=== PATIENT | female | born 1965 | race American Indian/Alaskan Native ===

== ENCOUNTER 2017-12-20 15:53 | Inpatient (IN) | payer BC ==
--- NOTE | 2017-12-20 16:29 | ED PDOC ---
Arrival/HPI - General Chief Complaint: Abdominal Pain Time Seen by Provider: 12/20/17 15:59 Historian: Patient - History of Present Illness Narrative History of Present Illness (Text): 12/20/17 16:26 52 year old female, whose history includes Graves' disease, presents to the Emergency department complaining of abdominal pain described as cramping and vomiting since 11:00 this morning. Patient reports vomit is now just bile, not food. Patient states she was entirely asymptomatic last night. Patient denies any fever, chills, chest pain, shortness of breath, diarrhea, urinary symptoms, back pain, neck pain, headache, dizziness, or any other complaints. Time/Duration: 4-6 hours Symptom Onset: Sudden Symptom Course: Unchanged Quality: Cramping Activities at Onset: Rest Context: Home Past Medical History - Provider Review Nursing Documentation Reviewed: Yes - Reproductive Menopause: Yes - Cardiac Hx Cardiac Disorders: No - Pulmonary Hx Respiratory Disorders: No - Neurological Hx Neurological Disorder: No - HEENT Hx HEENT Disorder: No - Renal Hx Renal Disorder: No - Endocrine/Metabolic Hx Endocrine Disorders: Yes Hx Hypothyroidism: Yes - Hematological/Oncological Hx Blood Disorders: No - Integumentary Hx Dermatological Disorder: No - Musculoskeletal/Rheumatological Hx Musculoskeletal Disorders: Yes Hx Back Pain: Yes Other/Comment: REYNAUDS - Gastrointestinal Hx Gastrointestinal Disorders: No - Genitourinary/Gynecological Hx Genitourinary Disorders: No - Psychiatric Hx Psychophysiologic Disorder: No Hx Substance Use: No - Surgical History Other/Comment: MYOMECTOMY, POLYP REMOVED FROM THROAT - Anesthesia Hx Anesthesia Reactions: No Hx Malignant Hyperthermia: No - Suicidal Assessment Feels Threatened In Home Enviroment: No Family/Social History - Physician Review Nursing Documentation Reviewed: Yes Family/Social History: No Known Family HX Smoking Status: Current Some Days Smoker Hx Alcohol Use: Yes (SOCIAL) Hx Substance Use: No Allergies/Home Meds Allergies/Adverse Reactions: Allergies levofloxacin [From Levaquin] Allergy (Mild, Verified 12/20/17 16:09) RASH Home Medications: Home Meds Medication Instructions Recorded Confirmed Naproxen [Naprosyn Tab] 500 mg PO DAILY 11/28/15 12/20/17 Oxycodone HCl/Acetaminophen 1 tab PO Q6H PRN 11/28/15 12/20/17 [Percocet 5-325 mg Tablet] methIMAzole [Tapazole] 5 mg PO DAILY 11/28/15 12/20/17 Review of Systems - Physician Review All systems were reviewed & negative as marked: Yes - Review of Systems Constitutional: absent: Fevers, Night Sweats Respiratory: absent: SOB Cardiovascular: absent: Chest Pain Gastrointestinal: Abdominal Pain, Nausea, Vomiting. absent: Diarrhea Genitourinary Female: absent: Dysuria Musculoskeletal: absent: Back Pain, Neck Pain Neurological: absent: Headache, Dizziness Physical Exam Vital Signs Reviewed: Yes Vital Signs Temp Pulse Resp BP Pulse Ox 12/20/17 20:13 74 17 132/78 100 12/20/17 18:29 72 17 135/80 99 12/20/17 16:14 99.2 F 76 18 136/83 100 Temperature: Afebrile Blood Pressure: Normal Pulse: Regular Respiratory Rate: Normal Appearance: Positive for: Well-Appearing, Non-Toxic, Comfortable Pain Distress: None Mental Status: Positive for: Alert and Oriented X 3 - Systems Exam Head: Present: Atraumatic, Normocephalic Pupils: Present: PERRL Extroacular Muscles: Present: EOMI Conjunctiva: Present: Normal Mouth: Present: Moist Mucous Membranes Neck: Present: Normal Range of Motion Respiratory/Chest: Present: Clear to Auscultation, Good Air Exchange. No: Respiratory Distress, Accessory Muscle Use Cardiovascular: Present: Regular Rate and Rhythm, Normal S1, S2. No: Murmurs Abdomen: Present: Tenderness (Left upper quadrant tenderness. Positive Newton's sign in the right upper quadrant.), Rebound, Guarding Back: Present: Normal Inspection Upper Extremity: Present: Normal Inspection. No: Cyanosis, Edema Lower Extremity: Present: Normal Inspection. No: Edema Neurological: Present: GCS=15, CN II-XII Intact, Speech Normal Skin: Present: Warm, Dry, Normal Color. No: Rashes Psychiatric: Present: Alert, Oriented x 3, Normal Insight, Normal Concentration Medical Decision Making ED Course and Treatment: 12/20/17 16:31 Impression: 52 year old female presents to the Emergency department complaining of abdominal pain and vomiting since this morning. Differential Diagnosis included but are not limited to: cholecystitis vs. cholelithiasis Plan: -- CT scan of the abdomen and pelvis -- Chest xray -- EKG -- Urine culture -- Urinalysis -- VBG -- Labs -- Benadryl, Toradol, Morphine, Zofran, and Sodium Chloride IV fluids -- Reassess and disposition Progress Notes: 12/20/17 19:28 Patient's chemistry is normal, but the urine has 40+ ketones; this means the patient is likely dehydrated. Will give the patient 3 liters of fluid while she is waiting for CT scan. - Lab Interpretations Lab Results: 12/20/17 19:00 12/20/17 19:00 Lab Results 12/20/17 21:21: pO2 35, VBG pH 7.29 L, VBG pCO2 48.0, VBG HCO3 23.1, VBG Total CO2 24.6, VBG O2 Sat (Calc) 75.3 H, VBG Base Excess -3.8 L, VBG Potassium 4.0, Glucose 80, Lactate 1.8, FiO2 21.0, Sodium 138.0, Chloride 107.0, Venous Blood Potassium 4.0 12/20/17 21:20: Blood Type Confirm B POSITIVE 12/20/17 21:10: PT 11.8, INR 1.03 12/20/17 19:00: Blood Type B POSITIVE, Antibody Screen Negative, BBK History Checked No verified bt 12/20/17 19:00: Sodium 142, Potassium 4.6, Chloride 109 H, Carbon Dioxide 21, Anion Gap 17, BUN 14, Creatinine 0.9, Est GFR ( Amer) > 60, Est GFR (Non- Af Amer) > 60, Random Glucose 96, Calcium 9.4, Total Bilirubin 0.5, AST 15, ALT 16, Alkaline Phosphatase 69, Total Protein 7.1, Albumin 4.1, Globulin 3.0, Albumin/Globulin Ratio 1.4, Lipase 87 12/20/17 19:00: WBC 9.8, RBC 4.41, Hgb 14.6, Hct 43.0, MCV 97.5, MCH 33.1, MCHC 34.0, RDW 13.0, Plt Count 200, MPV 10.5, Gran % 82.0 H, Lymph % (Auto) 14.2 L, Piatt % (Auto) 3.8, Eos % (Auto) 0.0 L, Baso % (Auto) 0.0, Gran # 8.06 H, Lymph # (Auto) 1.4, Piatt # (Auto) 0.4, Eos # (Auto) 0.0, Baso # (Auto) 0.00 12/20/17 17:20: Urine Color Yellow, Urine Appearance Clear, Urine pH 5.5, Ur Specific [place] >= 1.030, Urine Protein Negative, Urine Glucose (UA) Negative, Urine Ketones 40 H, Urine Blood Negative, Urine Nitrate Negative, Urine Bilirubin Negative, Urine Urobilinogen 0.2, Ur Leukocyte Esterase Negative - RAD Interpretation Narrative RAD Interpretations (Text): 12/20/2017 17:39:35 Procedure: Chest xray FINDINGS: LUNGS: No active pulmonary disease. PLEURA: No significant pleural effusion identified, no pneumothorax apparent. CARDIOVASCULAR: Normal. OSSEOUS STRUCTURES: No significant abnormalities. VISUALIZED UPPER ABDOMEN: Normal. OTHER FINDINGS: None. IMPRESSION: No active disease. 12/20/2017 21:41 Procedure: CT Abdomen and Pelvis With Intravenous Contrast FINDINGS: Limitations: Motion artifact - mild. Lower thorax: Several ill-defined pulmonary nodules, up to 0.7 cm. ABDOMEN: Liver: < 0.5 cm lesion. Gallbladder and bile ducts: No calcified stones. No ductal dilation. Pancreas: No ductal dilation. No mass. Spleen: No splenomegaly. Adrenals: No mass. Kidneys and ureters: No mass. No hydronephrosis. Stomach and bowel: Several mild to moderately thickened loops of small bowel within lower abdomen/pelvis. [id number] stranding within adjacent mesentery. Apparent mild to moderate mural thickening of large bowel. Apparent minimal haziness within adjacent fat. Moderate focal dilatation of duodenum, likely ileus. Appendix: Normal caliber. No inflammation. PELVIS: Bladder: Unremarkable. Reproductive: Lobulated uterus with enhancing focal lesion. ABDOMEN and PELVIS: Intraperitoneal space: Small free fluid within pelvis. No free air. Bones/joints: No acute fracture. Soft tissues: Unremarkable. Vasculature: Retroaortic LEFT renal vein. No aneurysm. Lymph nodes: No pathologically enlarged lymph nodes. IMPRESSION: 1. Probable enterocolitis. Consider inflammatory or infectious etiologies. 2. Pulmonary nodules. Consider inflammatory, infectious, or neoplastic etiologies. 3. Probable fibroid uterus. 4. Liver lesion. For patients with low to average risk of malignancy, no further follow-up is necessary. For patients with high risk of malignancy (known malignancy that can metastasize or other risk factors), recommend follow-up abdominal CT or MR in 6 months. 5. Incidental/non-acute findings are described above. Radiology Orders: 12/20/17 16:27 ABD PELVIS PO & IV CONTRAST [CT] Stat CHEST PORTABLE [RAD] Stat - EKG Interpretation EKG Interpretation (Text): 12/20/17 16:37 EKG: Ordered, reviewed, and independently interpreted the EKG. Rate : 71 BPM Rhythm : NSR Interpretation : PVC's present. Normal axis, normal intervals. Interpreted by ED Physician: Yes Type: 12 lead EKG - Medication Orders Current Medication Orders: Discontinued Medications Diphenhydramine HCl (Benadryl) 25 mg IVP STAT STA Stop: 12/20/17 16:33 Last Admin: 12/20/17 17:05 Dose: 25 mg IVP Administration Document 12/20/17 17:05 SF (Rec: 12/20/17 17:05 SF [email or web address] Charges for Administration # of IVP Administrations 1 Sodium Chloride (Sodium Chloride 0.9%) 2,000 mls @ 999 mls/hr IV .Q2H1M STA Stop: 12/20/17 18:32 Last Admin: 12/20/17 17:06 Dose: 999 mls/hr eMAR Start Stop Document 12/20/17 17:06 SF (Rec: 12/20/17 17:06 SF [email or web address]) Intravenous Solution Start Date 12/20/17 Start Time 17:06 End Date 12/20/17 End time 19:06 Total Infusion Time 120 Sodium Chloride (Sodium Chloride 0.9%) 1,000 mls @ 999 mls/hr IV .Q1H1M STA Stop: 12/20/17 20:27 Last Admin: 12/20/17 19:30 Dose: 999 mls/hr eMAR Start Stop Document 12/20/17 19:30 AD (Rec: 12/20/17 21:46 AD [email or web address]) Intravenous Solution Start Date 12/20/17 Start Time 19:30 Ketorolac Tromethamine (Toradol) 30 mg IVP STAT STA Stop: 12/20/17 16:33 Last Admin: 12/20/17 17:05 Dose: 30 mg MAR Pain Assessment Document 12/20/17 17:05 SF (Rec: 12/20/17 17:05 SF [email or web address] Pain Reassessment Is this a pain reassessment? Yes Sleep Is patient sleeping during reassessment? No Presence of Pain Presence of Pain Yes Pain Scale Used Pain Scale Used Numeric IVP Administration Document 12/20/17 17:05 [facility] ([email or web address] Charges for Administration # of IVP Administrations 1 Morphine Sulfate (Morphine) 4 mg IVP STAT STA Stop: 12/20/17 16:33 Last Admin: 12/20/17 17:05 Dose: 4 mg MAR Pain Assessment Document 12/20/17 17:05 SF (Rec: 12/20/17 17:06 [email or web address] Pain Reassessment Is this a pain reassessment? Yes Sleep Is patient sleeping during reassessment? No Presence of Pain Presence of Pain Yes IVP Administration Document 12/20/17 17:05 SF (Rec: 12/20/17 17:06 [email or web address]) Charges for Administration # of IVP Administrations 1 Ondansetron HCl (Zofran Inj) 8 mg IVP STAT STA Stop: 12/20/17 16:33 Last Admin: 12/20/17 17:04 Dose: 8 mg IVP Administration Document 12/20/17 17:04 SF (Rec: 12/20/17 17:05 [email or web address] Charges for Administration # of IVP Administrations 1 - PA / [employer] SUPERVISOR / Resident Statement MD/DO has reviewed & agrees with the documentation as recorded. - Scribe Statement The provider has reviewed the documentation as recorded by the Mai Esteban Provider Scribe Attestation: All medical record entries made by the Scribshahrzad were at my direction and personally dictated by me. I have reviewed the chart and agree that the record accurately reflects my personal performance of the history, physical exam, medical decision making, and the department course for this patient. I have also personally directed, reviewed, and agree with the discharge instructions and disposition. Disposition/Present on Arrival - Present on Arrival Any Indicators Present on Arrival: No History of DVT/PE: No History of Uncontrolled Diabetes: No Urinary Catheter: No History of Decub. Ulcer: No History Surgical Site Infection Following: None - Disposition Have Diagnosis and Disposition been Completed?: Yes Diagnosis: Abdominal pain, Enterocolitis Disposition: HOSPITALIZED Disposition Time: 22:00 Patient Plan: Admission Condition: GOOD Forms: [employer] (Sami)
[2017-12-20] MEDS ORDERED: Morphine 4 mg/ml ISec IVP STA ×2 (16:32→22:03)
[2017-12-20] MEDS ORDERED: Sodium Chloride 0.9% 2,000 ML IV STA (16:32)
[2017-12-20] MEDS ORDERED: DiphenhydrAMINE 50 mg/ml Inj IVP STA ×2 (16:32→22:03)
[2017-12-20] MEDS ORDERED: Iohexol 240 (50 ml) ONE (16:41)
[2017-12-20 17:40] LABS: PH,URINE 5.5 (4.7-8.0); URINE BILIRUBIN NEGATIVE (NEGATIVE); URINE BLOOD NEGATIVE (NEGATIVE); URINE GLUCOSE (UA) NEGATIVE (NEGATIVE); URINE LEUKOCYTE ESTERASE NEGATIVE Leu/uL (NEGATIVE); URINE NITRATE NEGATIVE (NEGATIVE); URINE PROTEIN NEGATIVE mg/dL (<30 mg/dL); URINE UROBILINOGEN 0.2 E.U./dL (<1 E.U./dL)
[2017-12-20 17:41] LABS: URINE APPEARANCE CLEAR (CLEAR); URINE COLOR YELLOW (YELLOW)
--- NOTE | 2017-12-20 17:41 | RAD ---
HISTORY: LUQ EPIGASTRIC PAIN COMPARISON: No prior. FINDINGS: LUNGS: No active pulmonary disease. PLEURA: No significant pleural effusion identified, no pneumothorax apparent. CARDIOVASCULAR: Normal. OSSEOUS STRUCTURES: No significant abnormalities. VISUALIZED UPPER ABDOMEN: Normal. OTHER FINDINGS: None. IMPRESSION: No active disease.
[2017-12-20 19:12] LABS: GRAN # 8.06 (1.4-6.5); HEMOGLOBIN 14.6 g/dL (12.0-16.0); LYMPH # 1.4 (1.2-3.4); LYMPH % 14.2 % (22.0-35.0); MEAN CELL VOLUME 97.5 fl (80.0-105.0); MEAN CORPUSCULAR HEMOGLOBIN 33.1 pg (25.0-35.0); MEAN PLATELET VOLUME 10.5 fl (7.0-11.0); MONO # 0.4 (0.1-0.6); MONO % 3.8 % (1.0-6.0); RBC 4.41 10^6/uL (3.5-6.1); WHITE BLOOD COUNT 9.8 10^3/ul (4.5-11.0)
[2017-12-20 19:22] LABS: ALB/GLOB RATIO 1.4 (1.1-1.8); ALBUMIN 4.1 g/dL (3.0-4.8); ALT/SGPT 16 U/L (7-56); AST/SGOT 15 U/L (14-36); BLOOD UREA NITROGEN 14 mg/dL (7-21); CALCIUM 9.4 mg/dL (8.4-10.5); GFR AFRICAN-AMERICAN > 60; GFR NON-AFRICAN AMERICAN > 60; LIPASE 87 U/L (23-300)
[2017-12-20] MEDS ORDERED: Sodium Chloride 0.9% 1,000 ML IV STA ×2 (19:27→22:03)
[2017-12-20] MEDS ORDERED: Iohexol 350 MG/100 ML VIAL ONE (19:47)
[2017-12-20 21:28] LABS: VENOUS BLOOD GAS BASE EXCESS -3.8 mmol/L (0.0-2.0); VENOUS BLOOD GAS PO2 35 mm/Hg (30-55); VENOUS BLOOD PH 7.29 (7.32-7.43)
--- NOTE | 2017-12-20 21:42 | CT ---
EXAM: CT Abdomen and Pelvis With Intravenous Contrast CLINICAL HISTORY: 52 years old, female; Pain; Abdominal pain; Localized; Left upper quadrant (luq); Prior surgery; Surgery date: 6+ months; Surgery type: Per pt HX abdominal cysts removed, HX myomectomy; Additional info: Luq tenderness with rebound TECHNIQUE: Axial computed tomography images of the abdomen and pelvis with intravenous contrast. All CT scans at this facility use one or more dose reduction techniques, viz.: automated exposure control; ma/kV adjustment per patient size (including targeted exams where dose is matched to indication; i.e. head); or iterative reconstruction technique. Coronal and sagittal reformatted images were created and reviewed. CONTRAST: 100 mL of omnipaque 350 administered intravenously. COMPARISON: No relevant prior studies available. FINDINGS: Limitations: Motion artifact - mild. Lower thorax: Several ill-defined pulmonary nodules, up to 0.7 cm. ABDOMEN: Liver: < 0.5 cm lesion. Gallbladder and bile ducts: No calcified stones. No ductal dilation. Pancreas: No ductal dilation. No mass. Spleen: No splenomegaly. Adrenals: No mass. Kidneys and ureters: No mass. No hydronephrosis. Stomach and bowel: Several mild to moderately thickened loops of small bowel within lower abdomen/pelvis. [id number]-[id number] stranding within adjacent mesentery. Apparent mild to moderate mural thickening of large bowel. Apparent minimal haziness within adjacent fat. Moderate focal dilatation of duodenum, likely ileus. Appendix: Normal caliber. No inflammation. PELVIS: Bladder: Unremarkable. Reproductive: Lobulated uterus with enhancing focal lesion. ABDOMEN and PELVIS: Intraperitoneal space: Small free fluid within pelvis. No free air. Bones/joints: No acute fracture. Soft tissues: Unremarkable. Vasculature: Retroaortic LEFT renal vein. No aneurysm. Lymph nodes: No pathologically enlarged lymph nodes. IMPRESSION: 1. Probable enterocolitis. Consider inflammatory or infectious etiologies. 2. Pulmonary nodules. Consider inflammatory, infectious, or neoplastic etiologies. 3. Probable fibroid uterus. 4. Liver lesion. For patients with low to average risk of malignancy, no further follow-up is necessary. For patients with high risk of malignancy (known malignancy that can metastasize or other risk factors), recommend follow-up abdominal CT or MR in 6 months. 5. Incidental/non-acute findings are described above.
[2017-12-20 21:49] LABS: INR 1.03 (0.93-1.08); PROTHROMBIN TIME 11.8 SECONDS (9.4-12.5)
[2017-12-20] MEDS ORDERED: Morphine 5 MG/ML SYRINGE IVP STA (22:13)
[2017-12-21 00:56] VITALS: BMI 27.4
[2017-12-21] MEDS: methIMAzole 5 MG TAB PO SCH (09:10)
[2017-12-21 09:24] LABS: ALB/GLOB RATIO 1.4 (1.1-1.8); ALBUMIN 3.9 g/dL (3.0-4.8); ALT/SGPT 16 U/L (7-56); AST/SGOT 14 U/L (14-36); BLOOD UREA NITROGEN 14 mg/dL (7-21); CALCIUM 9.5 mg/dL (8.4-10.5); GFR AFRICAN-AMERICAN > 60; GFR NON-AFRICAN AMERICAN 58
--- NOTE | 2017-12-21 10:00 | CT ---
PROCEDURE: CT Chest without contrast HISTORY: eval polyps COMPARISON: None. TECHNIQUE: Contiguous axial images were obtained through the chest without intravenous contrast enhancement. Sagittal and coronal reconstructions were performed. Radiation dose (DLP): 214 mGy-cm. This CT exam was performed using one or more of the following dose reduction techniques: Automated exposure control, adjustment of the mA and/or kV according to patient size, and/or use of iterative reconstruction technique. FINDINGS: LUNGS: Multiple nodules are seen primarily in the right lung ranging in size from 5-10 mm. The nodules have an irregular border. Hazy infiltrate surround the larger nodules. The findings are most suspicious for inflammatory or infectious disease. Metastatic disease is also possible and follow-up is recommended. MEDIASTINUM: Unremarkable thoracic aorta. No aneurysm. Normal sized heart. Main pulmonary artery unremarkable. No vascular congestion. No lymphadenopathy. PLEURA: No pleural fluid. No pneumothorax. BONES: No fracture. No destructive lesion. UPPER ABDOMEN: Grossly unremarkable. OTHER FINDINGS: None. IMPRESSION: Multiple nodules are seen primarily in the right lung ranging in size from 5-10 mm. The nodules have an irregular border. Hazy infiltrate surround the larger nodules. The findings are most suspicious for inflammatory or infectious disease. Metastatic disease is also possible and follow-up is recommended.
[2017-12-21] MEDS: cefTRIAXone 1 gm 1 GM/100 ML BAG IVPB SCH (12:15)
[2017-12-21] MEDS: Sodium Chloride 0.9% 1,000 ML IV SCH (12:17)
[2017-12-21] MEDS: metroNIDAZOLE IV 500 mg/100 ml 500 MG/100 ML BAG IVPB SCH ×2 (13:00→21:08)
--- NOTE | 2017-12-21 15:20 | CON ---
DATE: 12/21/2017 PULMONARY CONSULTATION REASON FOR CONSULTATION: Pulmonary nodules. REFERRING PHYSICIAN: Michael Dawson DO HISTORY OF PRESENT ILLNESS: The patient is a 52-year-old female, with past medical history significant for Grave's disease, who presents to [facility] with a 1-day history of nausea, vomiting, diarrhea and abdominal cramping. In the emergency room, CAT scan of the abdomen and pelvis was done. The CAT scan was consistent with acute enterocolitis. The patient was thus admitted for additional evaluation. There is no history of shortness of breath at rest, dyspnea on exertion, cough, or sputum production. There is also no history of chest pain, coughing up of blood, or chest pain - made worse with deep respirations. The patient did present with low-grade fevers (99.2). No history of chills or infectious exposure. No history of night sweats, weight loss or appetite change prior to the above events. No history of leg or calf pains. No history of syncope or diaphoresis. No history of recent travel or trauma. REVIEW OF SYSTEMS: No acute urinary symptoms. No new musculoskeletal or neurologic complaints. Rest of the review of systems is negative. ALLERGIES: LEVAQUIN. SOCIAL HISTORY: Positive for tobacco and negative for alcohol. FAMILY HISTORY: No inheritable diseases. HOME MEDICATIONS: Include Percocet, Naprosyn and Tapazole. PHYSICAL EXAMINATION GENERAL: The patient appears comfortable at rest. She is not short of breath. VITAL SIGNS: (Last noted in the computer): Temperature is 98.1, pulse is 60, respirations 18, blood pressure 110/58. Oxygen saturation on room air is 100%. HEENT: Normocephalic and atraumatic. No JVD. CARDIOVASCULAR: Positive S1, S2. No S3 gallop. LUNGS: Clear bilaterally. EXTREMITIES: No clubbing, cyanosis or edema. Calves are nontender to palpation. GI: Abdomen is soft. It is mildly distended and tender to palpation. Bowel sounds are positive. SKIN: No acute rash. NEUROLOGIC: Limited at the present time. PERTINENT LABORATORY DATA: CAT scan of the abdomen and pelvis was done. There is probable enterocolitis noted. There are also several small pulmonary nodules noted - two in the right lower lobe, and one in the left lower lobe. There is no lymphadenopathy. CBC: White count 9.8, hemoglobin 14.6, hematocrit 43.0, platelets of 200,000. Complete metabolic profile: Chloride 109. Rest of the metabolic profiles within normal limits. IMPRESSION: 1. Acute enterocolitis. 2. Dehydration. 3. Pulmonary nodules - lower lobes. 4. Graves disease. PLAN: The patient presents to [facility] with a 1-day history of worsening gastrointestinal symptoms. In addition, as above, the patient also presented with low-grade fevers. CAT scan of the abdomen and pelvis was done. There is probable acute enterocolitis noted. The patient was thus admitted for additional evaluation. I did discuss the CAT scan findings with the patient at length this morning. There are three small pulmonary nodules noted in the lower lobes - two in the right lower lobe and one in the left lower lobe. There is no lymphadenopathy. I will proceed with a dedicated CAT scan of the chest. On physical exam, the patient's lungs are clear. Oxygen saturation on room air is 100%. The patient is strongly advised to stop smoking as soon as possible. She agrees. The patient does feel better and is clinically improved this morning. GI evaluation is ordered. Additional pulmonary intervention will be based on the clinical status of the patient, as well as the above results. I will discuss the above with Dr. Dawson later this morning. Thank you very much for this pulmonary consultation. Tolu Munoz MD [facility]
--- NOTE | 2017-12-21 16:39 | CARD ---
APPROVED REPORT EKG Measurement Heart [id number] <Conclusion> Sinus rhythm with occasional premature ventricular complexes Otherwise normal ECG
--- NOTE | 2017-12-21 19:11 | HP ---
HISTORY OF PRESENT ILLNESS: I saw her in her bed. She came in last night to the Emergency Room complaining of abdominal pain, cramping, vomiting all day bile, not just food. She is a 52-year-old -[place] female who has a history of Graves' disease, comes in with nausea, vomiting bile, not feeling well, abdominal cramping and pain. PAST MEDICAL HISTORY: She has a past medical history of hypothyroidism, Graves' disease. She has had back pain before. She has Raynaud's. PAST SURGICAL HISTORY: She had a myomectomy, polyp removed from the throat. FAMILY HISTORY: No known family history. SOCIAL HISTORY: She still smokes cigarettes. Social drinker, no substance abuse. ALLERGIES: SHE IS ALLERGIC TO LEVOFLOXACIN. MEDICATIONS: She takes Naprosyn, Percocet and Tapazole. REVIEW OF SYSTEMS: No changes in vision or hearing. She has had no shortness of breath, no chest pains or abdominal pain, nausea or vomiting. No diarrhea or constipation. No problems urinating. No back pain or neck pain at this time. No headache or dizziness. No tremors. No anxiety or depression. PHYSICAL EXAMINATION VITAL SIGNS: She has 99.2 temperature, 76 pulse, 18 respiratory rate, 136/82 blood pressure, 100% O2 saturation. GENERAL: She is well appearing at this time, nontoxic, alert and oriented x3. Feeling better after IV fluids. HEENT: Head atraumatic, normocephalic. Extraocular muscles are intact. Pupils are equal and reactive to light. Throat is moist. NECK: Supple. Thyroid midline. No palpable appreciable lymphadenopathy. HEART: Regular rate. Normal S1, S2. LUNGS: Clear to auscultation with decreased breath sounds. No wheezes, no rhonchi, no rales. ABDOMEN: Mildly tender, less so than last night. Positive bowel sounds. No guarding or rebound. EXTREMITIES: No edema. GCS is 15. NEUROLOGIC: Cranial nerves II through XII grossly intact. Alert and oriented x3. SKIN: Warm and dry. No apparent rashes or ulcers appreciated. DATA: CAT scan showed probable encephalitis, consider inflammatory, infectious; pulmonary nodules; liver lesion. We will see what GI has to say. Also, consulted Pulmonary for the pulmonary lesions. Chest x-ray, there was no active disease. She had urine, which was clean. Sodium 142, potassium 4.6, BUN is 14, creatinine 0.9, GFR is greater than 60, sugar is 96, calcium is 9.4, total bilirubin is 0.5, AST is 15, ALT is 16, alkaline phosphatase 69, total protein 7.1, albumin is 4.1, globulin is 3, lipase is 87, lactate is 1.8. She has a 1.03 INR. White count 9.8, 14.6 hemoglobin, 43 hematocrit with 200,000 platelets. Waiting for labs from this morning. We will see what the consults say. We will increase her diet to full liquids. If she does well, we will increase it to regular for lunch. If she does well after lunch, we will discharge her home later today for outpatient followup. This is a history and physical for Shruti Lance for enterocolitis, abdominal pain, liver lesion, pulmonary nodule and she is on observation status. Michael Dawson DO
--- NOTE | 2017-12-21 20:43 | CON ---
DATE: 12/21/2017 GASTROENTEROLOGY CONSULTATION REQUESTING PHYSICIAN: Michael Dawson DO REASON FOR CONSULTATION: I have been asked to see this 52-year-old female who comes to the hospital with a 1-day history of diffuse abdominal pain, nausea, vomiting and diarrhea. This started yesterday on the day of admission. The patient describes the pain is crampy. She also notes "rumbling in her abdomen prior to having a watery bowel movement." She denies any recent travel or ingestion of any unusual foods. She denies anyone else at home who is ill. The patient did have a colonoscopy approximately 2 years ago, which revealed several small hyperplastic polyps. A CT scan of the abdomen and pelvis performed in the emergency room showed mural thickening of the loops of small bowel in the lower abdomen and pelvis with some [id number] mesenteric stranding. There is also mural thickening of the large bowel with some haziness in the adjacent pericolonic fat. There is also some dilatation in the duodenum. The patient also had a CT scan of the chest, which revealed several irregular nodules ranging in size from 5 to 10 mm in the right lung with some hazy infiltrates surrounding the larger nodules suspicious for an inflammatory infectious process. There is also the possibility of metastasis. PAST MEDICAL HISTORY: Notable for hyperthyroidism with Graves' disease, Raynaud's disease. PAST SURGICAL HISTORY: Notable for myomectomy and polypectomy from the throat. SOCIAL HISTORY: She smokes less than half pack of cigarettes per day. She denies alcohol abuse. FAMILY HISTORY: Noncontributory. MEDICATIONS: At home include Naprosyn 500 mg once a day, oxycodone 5/325 one 4 times a day as needed for pain, Tapazole 5 mg daily. ALLERGIES: INCLUDE LEVAQUIN. REVIEW OF SYSTEMS: A 14-point review of systems is notable for abdominal cramps, nausea, vomiting, diarrhea. PHYSICAL EXAMINATION: GENERAL: Well-developed female, lying in bed, in mild distress from abdominal pain. VITAL SIGNS: Reveals a temperature of 98, blood pressure 161/76, heart rate 78. HEENT: Reveal sclerae to be white. Conjunctivae pink. NECK: Supple. CHEST: Lungs are clear. HEART: Regular rate and rhythm. ABDOMEN: Soft. Mild diffuse tenderness. No rebound or guarding. EXTREMITIES: Show no edema. LABORATORY DATA: Reveal white blood cell count 9.8, hemoglobin 14.6. Chemistries reveal chloride of 108, BUN 14, creatinine 1, bicarb of 23. IMPRESSION: 1. A 52-year-old female with 1 day of diffuse abdominal pain, nausea, vomiting, diarrhea, with a CT scan of the abdomen and pelvis showing mural thickening and some mesenteric inflammation in the small bowel in the lower abdomen and pelvis as well as some mural thickening of the colon and some pericolonic streaking of the fat. I suspect if this is an acute enterocolitis. She did have a colonoscopy 2 years ago, which showed some hyperplastic polyps. 2. Several pulmonary nodules, most likely infectious/inflammatory. RECOMMENDATIONS 1. Check stool for INFORMATICS SPECIALIST, O and P, and C. diff toxin. 2. Maintain on clear liquids. We will make n.p.o. if the patient's pain worsens. 3. I will start the patient on Rocephin 1 g daily as well as Flagyl 500 mg three times a day. 4. We will need pulmonary evaluation for multiple pulmonary nodules. Bernard Askew MD
--- NOTE | 2017-12-21 23:07 | CP.PCM.PN ---
Subjective - Date & Time of Evaluation Date of Evaluation: 12/21/17 Time of Evaluation: 22:52 - Subjective Subjective: Patient was seen at bedside. Nurse calls and tells that patient is not able to sleep. States that she is on Xanax at home and sometimes take Xanax for sleep. Medical record was reviewed. This 52 year old woman was admitted with abdominal pain, cramping, vomiting of bile. Has no other complaints. She has PMH of Grave's disease, back pain, hypothyroidism?, Raynaud's , polyp removed from throat, mymectomy. Objective - Vital Signs/Intake and Output Vital Signs (last 24 hours): Temp Pulse Resp BP Pulse Ox 98.2 F 50 L 18 96/58 L 96 12/21/17 14:00 12/21/17 14:00 12/21/17 14:00 12/21/17 14:00 12/21/17 14:00 Intake and Output: 12/21/17 12/22/17 18:59 06:59 Intake Total 240 480 Balance 240 480 - Medications Medications: Current Medications Sodium Chloride (Sodium Chloride 0.9%) 1,000 mls @ 80 mls/hr IV .[id number] [facility] Last Admin: 12/21/17 12:17 Dose: 80 mls/hr Metronidazole (Flagyl) 500 mg in 100 mls @ 100 mls/hr IVPB Q8 JAS PRN Reason: Protocol Last Admin: 12/21/17 21:08 Dose: 100 mls/hr Ceftriaxone Sodium (Rocephin 1 Gram Ivpb) 1 gm in 100 mls @ 100 mls/hr IVPB DAILY JAS PRN Reason: Protocol Last Admin: 12/21/17 12:15 Dose: 100 mls/hr Ketorolac Tromethamine (Toradol) 30 mg IVP Q6H PRN PRN Reason: Pain, severe (8-10) Last Admin: 12/21/17 12:11 Dose: 30 mg Methimazole (Tapazole) 5 mg PO DAILY [facility] Last Admin: 12/21/17 09:10 Dose: 5 mg - Labs Labs: 12/21/17 07:44 PT 11.8 SECONDS (9.4-12.5) 12/20/17 21:10 INR 1.03 (0.93-1.08) 12/20/17 21:10 Micro Results 12/20/17 17:20 Urine,Clean Catch Urine Culture - Final No Growth (<1,000 CFU/ML) Most Recent Lab Values WBC 9.8 10^3/ul (4.5-11.0) 12/20/17 19:00 RBC 4.41 10^6/uL (3.5-6.1) 12/20/17 19:00 Hgb 14.6 g/dL (12.0-16.0) 12/20/17 19:00 Hct 43.0 % (36.0-48.0) 12/20/17 19:00 MCV 97.5 fl (80.0-105.0) 12/20/17 19:00 MCH 33.1 pg (25.0-35.0) 12/20/17 19:00 MCHC 34.0 g/dl (31.0-37.0) 12/20/17 19:00 RDW 13.0 % (11.5-14.5) 12/20/17 19:00 Plt Count 200 10^3/uL (120.0-450.0) 12/20/17 19:00 MPV 10.5 fl (7.0-11.0) 12/20/17 19:00 Gran % 82.0 % (50.0-68.0) H 12/20/17 19:00 Lymph % (Auto) 14.2 % (22.0-35.0) L 12/20/17 19:00 [place] % (Auto) 3.8 % (1.0-6.0) 12/20/17 19:00 Eos % (Auto) 0.0 % (1.5-5.0) L 12/20/17 19:00 Baso % (Auto) 0.0 % (0.0-3.0) 12/20/17 19:00 Gran # 8.06 (1.4-6.5) H 12/20/17 19:00 Lymph # (Auto) 1.4 (1.2-3.4) 12/20/17 19:00 [place] # (Auto) 0.4 (0.1-0.6) 12/20/17 19:00 Eos # (Auto) 0.0 (0.0-0.7) 12/20/17 19:00 Baso # (Auto) 0.00 K/mm3 (0.0-2.0) 12/20/17 19:00 PT 11.8 SECONDS (9.4-12.5) 12/20/17 21:10 INR 1.03 (0.93-1.08) 12/20/17 21:10 pO2 35 mm/Hg (30-55) 12/20/17 21:21 VBG pH 7.29 (7.32-7.43) L 12/20/17 21:21 VBG pCO2 48.0 (40-60) 12/20/17 21:21 VBG HCO3 23.1 mmol/l (21-28) 12/20/17 21:21 VBG Total CO2 24.6 mmol.L (22-28) 12/20/17 21:21 VBG O2 Sat (Calc) 75.3 % (40-65) H 12/20/17 21:21 VBG Base Excess -3.8 mmol/L (0.0-2.0) L 12/20/17 21:21 VBG Potassium 4.0 mmol/L (3.6-5.2) 12/20/17 21:21 Sodium 138.0 mmol/L (132-148) 12/20/17 21:21 Chloride 107.0 mmol/L (98-107) 12/20/17 21:21 Glucose 80 mg/dl (65-105) 12/20/17 21:21 Lactate 1.8 mmol/L (0.7-2.1) 12/20/17 21:21 FiO2 21.0 % 12/20/17 21:21 Sodium 140 mmol/L (132-148) 12/21/17 07:44 Potassium 3.7 mmol/L (3.6-5.0) 12/21/17 07:44 Chloride 108 mmol/L (98-107) H 12/21/17 07:44 Carbon Dioxide 23 mmol/L (21-33) 12/21/17 07:44 Anion Gap 12 (10-20) 12/21/17 07:44 BUN 14 mg/dL (7-21) 12/21/17 07:44 Creatinine 1.0 mg/dl (0.7-1.2) 12/21/17 07:44 Est GFR ( Amer) > 60 12/21/17 07:44 Est GFR (Non-Af Amer) 58 12/21/17 07:44 Random Glucose 106 mg/dL (70-110) 12/21/17 07:44 Calcium 9.5 mg/dL (8.4-10.5) 12/21/17 07:44 Total Bilirubin 0.7 mg/dL (0.2-1.3) 12/21/17 07:44 AST 14 U/L (14-36) 12/21/17 07:44 ALT 16 U/L (7-56) 12/21/17 07:44 Alkaline Phosphatase 60 U/L (38-126) 12/21/17 07:44 Total Protein 6.7 g/dL (5.8-8.3) 12/21/17 07:44 Albumin 3.9 g/dL (3.0-4.8) 12/21/17 07:44 Globulin 2.7 gm/dL 12/21/17 07:44 Albumin/Globulin Ratio 1.4 (1.1-1.8) 12/21/17 07:44 Lipase 87 U/L (23-300) 12/20/17 19:00 Venous Blood Potassium 4.0 mmol/L (3.6-5.2) 12/20/17 21:21 Urine Color Yellow (YELLOW) 12/20/17 17:20 Urine Appearance Clear (CLEAR) 12/20/17 17:20 Urine pH 5.5 (4.7-8.0) 12/20/17 17:20 Ur Specific [place] >= 1.030 (1.005-1.035) 12/20/17 17:20 Urine Protein Negative mg/dL (<30 mg/dL) 12/20/17 17:20 Urine Glucose (UA) Negative mg/dL (NEGATIVE) 12/20/17 17:20 Urine Ketones 40 mg/dL (NEGATIVE) H 12/20/17 17:20 Urine Blood Negative (NEGATIVE) 12/20/17 17:20 Urine Nitrate Negative (NEGATIVE) 12/20/17 17:20 Urine Bilirubin Negative (NEGATIVE) 12/20/17 17:20 Urine Urobilinogen 0.2 E.U./dL (<1 E.U./dL) 12/20/17 17:20 Ur Leukocyte Esterase Negative Nav[place]/uL (NEGATIVE) 12/20/17 17:20 Blood Type B POSITIVE 12/20/17 19:00 Blood Type Confirm B POSITIVE 12/20/17 21:20 Antibody Screen Negative 12/20/17 19:00 BBK History Checked No verified bt 12/20/17 19:00 - Constitutional Appears: Well, No Acute Distress - Head Exam Head Exam: ATRAUMATIC, NORMAL INSPECTION, NORMOCEPHALIC - Eye Exam Eye Exam: Normal appearance - ENT Exam ENT Exam: Normal External Ear Exam - Neck Exam Neck Exam: Normal Inspection - Respiratory Exam Respiratory Exam: NORMAL BREATHING PATTERN - GI/Abdominal Exam GI & Abdominal Exam: absent: Distended - Rectal Exam Rectal Exam: Deferred - Exam Additional comments: Deferred. - Extremities Exam Extremities Exam: Normal Inspection - Back Exam Back Exam: NORMAL INSPECTION - Neurological Exam Neurological Exam: Alert, Awake, Oriented x3 - Psychiatric Exam Psychiatric exam: Normal Affect, Normal Mood - Skin Skin Exam: Normal Color Assessment and Plan - Assessment and Plan (Free Text) Assessment: Adjustment insomnia. Graves's disease. Back pain. Raynaud's. Hypothyroidism. History of mymectomy. Plan: Xanax 0.5 mg PO X 1. Management as per PMD.
[2017-12-22] MEDS: metroNIDAZOLE IV 500 mg/100 ml 500 MG/100 ML BAG IVPB SCH ×3 (05:42→23:00)
[2017-12-22 07:44] LABS: MEAN CELL VOLUME 96.9 fl (80.0-105.0); MEAN CORPUSCULAR HEMOGLOBIN 31.9 pg (25.0-35.0); MEAN CORPUSCULAR HGB CONC 32.9 g/dl (31.0-37.0); RBC 3.51 10^6/uL (3.5-6.1); RED CELL DISTRIBUTION WIDTH 13.1 % (11.5-14.5); WHITE BLOOD COUNT 4.8 10^3/ul (4.5-11.0)
[2017-12-22 07:53] LABS: HEMOGLOBIN 11.2 g/dL (12.0-16.0)
[2017-12-22] MEDS: cefTRIAXone 1 gm 1 GM/100 ML BAG IVPB SCH (09:14)
[2017-12-22] MEDS: methIMAzole 5 MG TAB PO SCH (09:15)
--- NOTE | 2017-12-22 09:25 | PN ---
DATE: 12/22/2017 PULMONARY NOTE SUBJECTIVE: The patient appears comfortable this morning. She is not short of breath at rest. PHYSICAL EXAMINATION: VITAL SIGNS: (Last noted in the computer): Temperature is 97.9, pulse 53, respirations 18, blood pressure 120/73. Oxygen saturation on room air is 99%. HEENT: Normocephalic, atraumatic. No JVD. CARDIOVASCULAR: Positive S1, S2. No S3 gallop. LUNGS: Clear bilaterally. EXTREMITIES: No clubbing, cyanosis or edema. Calves are nontender to palpation. GI: Abdomen is soft. It is nondistended and nontender to palpation this morning. Bowel sounds are positive. SKIN: No acute rash. NEUROLOGIC: Limited at the present time. PERTINENT LABORATORY DATA: CAT scan of the chest was done yesterday and reviewed. I did review the CAT scan of the chest with Dr. Jackson (Radiology) at length. There are multiple bilateral nodules seen. The nodules range in size from 5-10 mm. Some of the larger nodules have a haziness surrounding them. As per Dr. Jackson, these nodules are most likely inflammatory or infectious in etiology. There is no lymphadenopathy. IMPRESSION: 1. Acute enterocolitis. 2. Dehydration. 3. Bilateral pulmonary nodules. 4. Graves disease. PLAN: The patient appears comfortable this morning. She is not short of breath at rest. She offers no pulmonary complaints. She does state to feeling much better overall. Her fevers have now resolved. Her GI symptoms are also resolving. I did review the CAT scan of the chest with Dr. Jackson (Radiology) at length. I have also discussed the CAT scan findings with the patient at length this morning. The patient is well aware that she will need close outpatient followup for these pulmonary nodules. The recommendation by Dr. Jackson is that we repeat the CAT scan in 3 months, and decide on additional possible workup/evaluation based on those results. The patient is in agreement with this plan. Clinical status of the patient is significantly improved overall. I will discuss the above with Dr. Dawson. Tolu Munoz MD cc: [facility] # [id number] SONIA
--- NOTE | 2017-12-22 12:16 | PN ---
DATE: SUBJECTIVE: I saw her this morning. She is very uncomfortable. She tried to eat last night and got nauseous and threw up. Dr. Askew, the patient accounts clerk saw her and felt it was an acute enterocolitis. Put her on IV Flagyl, IV Rocephin and changed her to clears and we can discharge her. She is very uncomfortable with the abdominal pain. PHYSICAL EXAMINATION: VITAL SIGNS: She has a 98.3 temp, 52 pulse, 125/58 blood pressure, 18 respiratory rate, 99% O2 sat on room air. HEENT: Head is atraumatic, normocephalic. HEART: Regular rate. LUNGS: Decreased breath sounds. She is very uncomfortable. ABDOMEN: Mildly distended. Definite discomfort. No guarding. No rebound. Decreased bowel sounds. MEDICATIONS: She is on Flagyl IV, Rocephin IV, IV fluids, Tapazole and Toradol. LABORATORY DATA: She has a 4.8 white count, 11.2 hemoglobin, 34 hematocrit with 180 platelets. Sodium 147, potassium 3.7, BUN 40, creatinine 1, GFR is greater than 60, sugar is 106, calcium is 9.5, total bili is 0.7, AST is 14, ALT is 16, alk phos 64, protein 6.7. Urine was negative. She has CAT scan of the chest, which showed pulmonary nodules with haziness, possible pneumonia, infiltrates and she has enterocolitis and abdominal pain. I changed her to an inpatient status on Shruti Lance. We will check her labs tomorrow. Michael Dawson DO
--- NOTE | 2017-12-22 13:58 | PN ---
DATE: 12/22/2017 SUBJECTIVE The patient had an episode of moderate midabdominal pain last night. She continues to have multiple loose watery bowel movements associated with cramps. She denies any further vomiting. The patient states that her abdominal pain has improved. She denies any fevers or chills. MEDICATIONS: Currently include Flagyl 500 mg IV q. 8h., Rocephin 1 g IV daily, Tapazole 5 mg once a day, Toradol 30 mg IV q. 6h. as needed for abdominal pain. PHYSICAL EXAMINATION VITAL SIGNS: Reveal temperature of 98.3, blood pressure 125/58, heart rate of 52. HEENT: Reveal sclerae to be white. Conjunctivae are pink. Oral mucosa slightly dry. NECK: Supple. CHEST: Reveal lungs to be clear. HEART: Reveals regular rate and rhythm. ABDOMEN: Soft. There is [id number] diffuse abdominal tenderness. No rebound or guarding. EXTREMITIES: Show no edema. LABORATORY DATA: Reveal sodium of 140, chloride 108, BUN 14, creatinine 1. CBC reveals white blood cell count 4.8, hemoglobin 11.2. IMPRESSION: Acute enterocolitis with CT scan of the abdomen and pelvis showing mural thickening of the small bowel in the lower abdomen and pelvis as well as the colon with surrounding mesenteric inflammation. I suspect that this is infectious in etiology. RECOMMENDATIONS 1. Await stool for C and S, O and P, C. diff. 2. Continue IV Rocephin and Flagyl. 3. I will advance the patient to a low-fat, low-residue soft diet. If tolerated, the patient can be discharged home on p.o. Flagyl 500 mg three times a day for 10 days. If the patient continues to have pain, she has been instructed to stop solid foods and stick with clear liquids. Bernard Askew MD
[2017-12-22] MEDS: Sodium Chloride 0.9% 1,000 ML IV SCH (15:29)
[2017-12-22] MEDS ORDERED: Vancomycin 25 MG/ML PO SCH (16:00)
[2017-12-22] MEDS: Vancomycin 25 MG/ML PO SCH (23:00)
[2017-12-22 23:08] VITALS: RESP 16
[2017-12-23] MEDS: Vancomycin 25 MG/ML PO SCH ×3 (01:56→11:56)
[2017-12-23] MEDS: metroNIDAZOLE IV 500 mg/100 ml 500 MG/100 ML BAG IVPB SCH (05:54)
[2017-12-23] MEDS: Sodium Chloride 0.9% 1,000 ML IV SCH (05:54)
--- NOTE | 2017-12-23 08:00 | PN ---
DATE: 12/23/2017 PULMONARY NOTE SUBJECTIVE: The patient appears very comfortable this morning. She is not short of breath at rest. OBJECTIVE VITAL SIGNS (last noted in the computer): Temperature is 98.0, pulse 82, respirations 16, blood pressure 128/68. Oxygen saturation on room air is 97%-100%. HEENT: Normocephalic, atraumatic. NECK: No JVD. CARDIOVASCULAR: Positive S1, S2. No S3 gallop. LUNGS: Clear bilaterally. EXTREMITIES: No clubbing, cyanosis or edema. Calves are nontender to palpation. GASTROINTESTINAL: Abdomen is soft. It is nondistended and nontender to palpation. Bowel sounds are positive. SKIN: No acute rash. NEUROLOGIC: Exam limited at the present time. IMPRESSION 1. Acute enterocolitis. 2. Dehydration. 3. Bilateral pulmonary nodules. 4. Graves disease. PLAN: The patient appears very comfortable this morning. She is not short of breath at rest. She does state to feeling much better overall. On physical exam, her lungs remain clear. Oxygen saturation on room air is 97%-100%. I did discuss the CAT scan findings and the future plan for this patient in yesterday's assessment at length. I did review our plan with her again this morning. She is in full agreement. Clinical status of the patient is significantly improved, overall. Input by gastroenterology (Dr. Askew) is noted. I will discuss the above with Dr. Dawson. Tolu Munoz MD MTDLuis [facility]
[2017-12-23 08:10] VITALS: PULSE 45; TEMP 97.9; O2SAT 100
[2017-12-23 08:15] LABS: HEMOGLOBIN 11.8 g/dL (12.0-16.0); MEAN CELL VOLUME 96.5 fl (80.0-105.0); MEAN CORPUSCULAR HGB CONC 33.1 g/dl (31.0-37.0); MEAN PLATELET VOLUME 10.4 fl (7.0-11.0); RBC 3.69 10^6/uL (3.5-6.1); RED CELL DISTRIBUTION WIDTH 12.7 % (11.5-14.5); WHITE BLOOD COUNT 4.7 10^3/ul (4.5-11.0)
[2017-12-23 08:27] VITALS: BP 155/76
[2017-12-23 08:31] LABS: ALB/GLOB RATIO 1.3 (1.1-1.8); ALBUMIN 3.5 g/dL (3.0-4.8); ALT/SGPT 21 U/L (7-56); AST/SGOT 18 U/L (14-36); BLOOD UREA NITROGEN 11 mg/dL (7-21); CALCIUM 9.5 mg/dL (8.4-10.5); GFR AFRICAN-AMERICAN > 60; GFR NON-AFRICAN AMERICAN 58
[2017-12-23] MEDS: methIMAzole 5 MG TAB PO SCH (10:11)
[2017-12-23] MEDS: cefTRIAXone 1 gm 1 GM/100 ML BAG IVPB SCH (10:11)
--- NOTE | 2017-12-23 12:27 | PN ---
DATE: SUBJECTIVE: I saw her this morning. She slept well last night. She is feeling a lot better. We are still waiting for stools to come back. She is on IV Rocephin and Flagyl. She is hungry right now. She ate a little bit last night. She does well for breakfast. I am going to discharge her on Flagyl 500 three times a day for 10 days. She has definitely improved this morning. She had abdominal pain, enterocolitis. She had questionable infiltrates, liver lesion, bilateral pulmonary nodules. She is going to have to follow up with Pulmonary and GI on the outpatient. PHYSICAL EXAMINATION: VITAL SIGNS: Temperature 98, pulse 82, blood pressure 120/68, respiratory rate 16, and 97% O2 sat on room air. HEENT: Head is atraumatic, normocephalic. HEART: Regular rate. LUNGS: Decreased breath sounds, but clear. ABDOMEN: Soft. Positive bowel sounds. Nontender. EXTREMITIES: No edema. LABORATORY DATA: She has white count 4.8, hemoglobin 11.2, hematocrit 34, platelets 180. Sodium 140, potassium 3.7, BUN 14, creatinine 1, GFR is 58, sugar is 106, calcium 9.5. Total bilirubin is 0.7, AST is 14, ALT is 16, alkaline phosphatase is 60, total protein 6.7, albumin is 3.9. Negative occult blood. ASSESSMENT AND PLAN: I will discuss this with Pulmonary and GI. She should go home and follow up on the outpatient after taking Flagyl 500 mg 3 times a day for 10 days. She should follow up in the office on Thursday for the weekend. Michael Dawson DO
== END 2017-12-23 12:42 | disposition home or self-care (01) | DRG 392 ==
LOC: ED 15:53 → ERH 22:05 → 5RSO 12-21 00:23 → OBSVTOIN 12-22 10:46
PROVIDERS: ADMIT Family Medicine; ATTEND Family Medicine
DX: K52.9 Noninfective gastroenteritis and colitis, unspecified (principal); E86.0 Dehydration; E03.9 Hypothyroidism, unspecified; E05.00 Thyrotoxicosis with diffuse goiter without thyrotoxic crisis or storm; I73.00 Raynaud's syndrome without gangrene; F51.02 Adjustment insomnia; M54.9 Dorsalgia, unspecified; R91.8 Other nonspecific abnormal finding of lung field; F17.210 Nicotine dependence, cigarettes, uncomplicated